=== PATIENT | male | born 1985 | race Hispanic/Latino ===

== ENCOUNTER 2024-05-19 17:18 | Emergency (ER) | payer OTHER ==
[~2024-05-19] VITALS: Ht 175.3 cm; Wt 81.6 kg
[2024-05-19] MEDS ORDERED: NAPROXEN500 MG PO (18:26)
[2024-05-19 18:33] VITALS: BP 137/93
== END 2024-05-19 18:37 | disposition home or self-care (01) | DRG 923 ==
LOC: ED 17:18
DX: Z04.1 Encounter for examination and observation following transport accident (principal)